=== PATIENT | male | born 1990 | race Two or more races ===

== ENCOUNTER 2022-09-18 05:56 | Emergency (ER) | payer OTHER ==
[~2022-09-18] VITALS: Ht 182.9 cm; Wt 77.1 kg
== END 2022-09-18 13:13 | disposition designated cancer center or children's hospital (05) ==
LOC: ER 05:56
DX: S05.32XA Ocular laceration without prolapse or loss of intraocular tissue, left eye, initial encounter (principal); Y08.89XA Assault by other specified means, initial encounter; Y93.89 Activity, other specified; Y92.89 Other specified places as the place of occurrence of the external cause; Y99.9 Unspecified external cause status; Z20.822 Contact with and (suspected) exposure to COVID-19